=== PATIENT | female | born 1935 | race Caucasian/White ===

== ENCOUNTER 2022-12-08 14:06 | Observation (INO) | payer MEDICARE ==
[~2022-12-08] VITALS: Ht 165.1 cm; Wt 105.2 kg
[2022-12-08] MEDS ORDERED: MONTELUKAST SOD10 MG (15:00)
[2022-12-08] MEDS ORDERED: ATORVASTATIN CA40 MG (15:00)
[2022-12-08] MEDS ORDERED: ARFORMOTER15 MCG/2 M (15:00)
[2022-12-08] MEDS ORDERED: ELIQUIS5 MG (15:00)
[2022-12-08] MEDS ORDERED: ISOSORBIDE MONO30 MG (15:00)
[2022-12-08] MEDS ORDERED: OMEPRAZOLE40 MG (15:00)
[2022-12-08] MEDS ORDERED: FEROSUL325 MG (15:00)
[2022-12-08] MEDS ORDERED: LORATADINE10 MG (15:00)
[2022-12-08] MEDS ORDERED: MECLIZINE HCL25 MG (15:00)
[2022-12-08] MEDS ORDERED: IPRAT-ALBUT 0.5-3 ML (15:00)
[2022-12-08] MEDS ORDERED: FUROSEMIDE40 MG (15:00)
[2022-12-08] MEDS ORDERED: BENZONATATE100 MG (15:00)
[2022-12-08] MEDS ORDERED: FLUTICASONE PRO16 GM (15:00)
[2022-12-08] MEDS ORDERED: POTASSIUM CHLO20 ME1 (15:04)
[2022-12-08] MEDS ORDERED: METOPROLOL TART50 MG (15:04)
[2022-12-08] MEDS ORDERED: MECLIZINE HCL12.5 MG (15:04)
[2022-12-08 15:58] LABS: BASOPHILS % 0.3 % (0.0-1.0); EOSINOPHILS # (AUTO) 0.1 (0.0-0.4); EOSINOPHILS % 1.1 % (0.0-6.0); HEMATOCRIT 41.1 % (34.2-44.1); HEMOGLOBIN 12.3 g/dL (12.0-16.0); LYMPHOCYTES # (AUTO) 1.4 (1.0-3.2); LYMPHOCYTES % 13.9 % (18.0-39.1); MEAN CORPUSCULAR HEMOGLOBIN 31.5 pg (28-32); MEAN CORPUSCULAR HGB CONC 29.9 g/dL (31-35); MEAN CORPUSCULAR VOLUME 105.4 fL (81-99); MONOCYTES # (AUTO) 1.1 (0.2-0.8); MONOCYTES % 11.1 % (4.4-11.3); NEUTROPHILS # (AUTO) 7.2 (2.1-6.9); NEUTROPHILS % 73.3 % (38.7-80.0); PLATELET COUNT 196 x10e3/uL (140-360); RED CELL DISTRIBUTION WIDTH 13.4 % (11.7-14.4)
[2022-12-08] MEDS ORDERED: SODIUM CHLORIDE 0.9% 250ML 250 ML ONE (15:59)
[2022-12-08 16:17] LABS: ANION GAP 16.9 mmol/L (8-16); CALCIUM 9.2 mg/dL (8.4-10.2); CREATININE, SERUM 1.1 mg/dL (0.57-1.11); POTASSIUM 3.9 mmol/L (3.5-5.1)
[2022-12-08 16:27] VITALS: BP 105/74
[2022-12-08 16:58] VITALS: BP 105/74
[2022-12-08 17:01] VITALS: BP 105/74
[2022-12-08 18:19] VITALS: BP 105/74
[2022-12-08 18:31] VITALS: BP 105/74
[2022-12-08] MEDS ORDERED: ALBUTEROL SULFATE HFA 8GM INHALATION AEROSOL INH SCH (19:45)
[2022-12-08] MEDS ORDERED: METOPROLOL TARTRATE 50 MG TAB PO SCH (19:45)
[2022-12-08 20:00] VITALS: BP_SYST 105; BP_SYST 126; BP_DIAS 62; BP_DIAS 74
[2022-12-08] MEDS: METOPROLOL TARTRATE 50 MG TAB PO SCH (20:59)
[2022-12-08] MEDS: FERROUS SULFATE 325 MG TAB PO SCH (21:00)
[2022-12-08] MEDS: HOME MEDICATION--PATIENTS OWN PO SCH (21:00)
[2022-12-09] VITALS (8 sets, daily range): BP systolic 101–132; BP diastolic 47–75
[2022-12-09] MEDS: MECLIZINE HCL 12.5 MG TAB PO SCH ×4 (05:14→16:57)
[2022-12-09] MEDS: MONTELUKAST SODIUM 10 MG TAB PO SCH (09:00)
[2022-12-09] MEDS ORDERED: ALBUTEROL/IPRATROPIUM 3 ML NEB INH SCH (09:00)
[2022-12-09] MEDS: FUROSEMIDE 40 MG TAB PO SCH (09:00)
[2022-12-09] MEDS: METOPROLOL TARTRATE 50 MG TAB PO SCH ×2 (09:00→21:27)
[2022-12-09] MEDS: PANTOPRAZOLE SOD 40 MG TABEC PO SCH (09:00)
[2022-12-09] MEDS: POTASSIUM CHLORIDE 20 MEQ TAB CR PO SCH (09:00)
[2022-12-09] MEDS: ISOSORBIDE MONONITRATE 30 MG TAB CR PO SCH (09:00)
[2022-12-09] MEDS: BENZONATATE 100 MG CAP PO SCH (09:00)
[2022-12-09] MEDS: LORATADINE 10 MG TAB PO SCH (09:00)
[2022-12-09] MEDS: FERROUS SULFATE 325 MG TAB PO SCH ×3 (09:00→21:26)
[2022-12-09] MEDS: FLUTICASONE PROPIONATE NASAL SPRAY NS SCH (11:34)
[2022-12-09] MEDS ORDERED: ONDANSETRON HCL INJ 2MG/ML 2ML 2 MG/ML VIAL ONE (11:53)
[2022-12-09] MEDS ORDERED: PROPOFOL IV EMULSION 10 MG/ML 20 ML VIAL ONE (11:53)
[2022-12-09] MEDS ORDERED: SEVOFLURANE INHAL SOLN 250 ML PEN BTL ONE (11:53)
[2022-12-09] MEDS ORDERED: POVIDONE IODINE 0.05% 0.05 % ML PO ONE (11:53)
[2022-12-09] MEDS ORDERED: DEXAMETHASONE SOD PHOS INJ 4 MG/ML SDV ONE (11:53)
[2022-12-09] MEDS ORDERED: LIDOCAINE HCL 2% LOCAL INJ 5 ML SDV VIAL INJ ONE (11:53)
[2022-12-09] MEDS ORDERED: Morphine 2mg Syringe 2 MG/ML SYR IV PRN (14:00)
[2022-12-09] MEDS ORDERED: TRAMADOL HCL 50 MG TAB PO PRN (14:00)
[2022-12-09] MEDS ORDERED: ACETAMINOPHEN 1000 MG/100 ML 100 ML IV ONE (14:24)
[2022-12-09] MEDS ORDERED: TRAMADOL HCL 50 MG TAB ONE (14:40)
[2022-12-09] MEDS: HOME MEDICATION--PATIENTS OWN PO SCH (21:28)
[2022-12-10] VITALS (8 sets, daily range): BP systolic 99–129; BP diastolic 49–73
[2022-12-10] MEDS: MECLIZINE HCL 12.5 MG TAB PO SCH ×5 (06:00→23:27)
[2022-12-10] MEDS: FUROSEMIDE 40 MG TAB PO SCH (08:34)
[2022-12-10] MEDS: METOPROLOL TARTRATE 50 MG TAB PO SCH ×2 (08:35→20:41)
[2022-12-10] MEDS: ISOSORBIDE MONONITRATE 30 MG TAB CR PO SCH (08:35)
[2022-12-10] MEDS: POTASSIUM CHLORIDE 20 MEQ TAB CR PO SCH (08:35)
[2022-12-10] MEDS: BENZONATATE 100 MG CAP PO SCH (08:35)
[2022-12-10] MEDS: LORATADINE 10 MG TAB PO SCH (08:36)
[2022-12-10] MEDS: PANTOPRAZOLE SOD 40 MG TABEC PO SCH (08:36)
[2022-12-10] MEDS: MONTELUKAST SODIUM 10 MG TAB PO SCH (08:36)
[2022-12-10] MEDS: FERROUS SULFATE 325 MG TAB PO SCH ×3 (08:36→20:41)
[2022-12-10] MEDS: FLUTICASONE PROPIONATE NASAL SPRAY NS SCH (08:36)
[2022-12-10] MEDS: HOME MEDICATION--PATIENTS OWN PO SCH (20:47)
[2022-12-11] VITALS: BP 104/52
[2022-12-11 04:00] VITALS: BP 119/57
[2022-12-11 04:56] LABS: BASOPHILS % 0.5 % (0.0-1.0); EOSINOPHILS # (AUTO) 0.1 (0.0-0.4); HEMATOCRIT 38.7 % (34.2-44.1); HEMOGLOBIN 11.4 g/dL (12.0-16.0); LYMPHOCYTES # (AUTO) 1.5 (1.0-3.2); LYMPHOCYTES % 23.8 % (18.0-39.1); MEAN CORPUSCULAR HEMOGLOBIN 31.1 pg (28-32); MEAN CORPUSCULAR HGB CONC 29.5 g/dL (31-35); MEAN CORPUSCULAR VOLUME 105.4 fL (81-99); MONOCYTES # (AUTO) 0.7 (0.2-0.8); NEUTROPHILS % 62.2 % (38.7-80.0); PLATELET COUNT 268 x10e3/uL (140-360); RED BLOOD COUNT 3.67 x10e6/uL (3.6-5.1); RED CELL DISTRIBUTION WIDTH 13.2 % (11.7-14.4)
[2022-12-11 05:13] LABS: ANION GAP 14.6 mmol/L (8-16); CALCIUM 8.5 mg/dL (8.4-10.2); CREATININE, SERUM 1.15 mg/dL (0.57-1.11); POTASSIUM 3.6 mmol/L (3.5-5.1)
[2022-12-11] MEDS: MECLIZINE HCL 12.5 MG TAB PO SCH (05:36)
[2022-12-11 07:35] VITALS: BP 128/60
[2022-12-11 08:00] VITALS: BP 128/60
[2022-12-11] MEDS: PANTOPRAZOLE SOD 40 MG TABEC PO SCH (08:29)
[2022-12-11] MEDS: FUROSEMIDE 40 MG TAB PO SCH (08:29)
[2022-12-11] MEDS: LORATADINE 10 MG TAB PO SCH (08:29)
[2022-12-11] MEDS: POTASSIUM CHLORIDE 20 MEQ TAB CR PO SCH (08:30)
[2022-12-11] MEDS: FERROUS SULFATE 325 MG TAB PO SCH (08:30)
[2022-12-11] MEDS: MONTELUKAST SODIUM 10 MG TAB PO SCH (08:30)
[2022-12-11] MEDS: ISOSORBIDE MONONITRATE 30 MG TAB CR PO SCH (08:31)
[2022-12-11] MEDS: BENZONATATE 100 MG CAP PO SCH (08:31)
[2022-12-11] MEDS: METOPROLOL TARTRATE 50 MG TAB PO SCH (09:00)
[2022-12-11] MEDS: FLUTICASONE PROPIONATE NASAL SPRAY NS SCH (09:00)
[2022-12-11 10:53] VITALS: BP 108/46
[2022-12-11] MEDS ORDERED: [UNRECOGNIZED DRUG - OTHER] (11:49)
[2022-12-11] MEDS ORDERED: CEFTIN PO (11:50)
[2022-12-11 15:39] VITALS: BP 121/78
== END 2022-12-11 17:01 | disposition home health service (06) ==
LOC: MED/SURG2 14:06
PROVIDERS: ADMIT Internal Medicine; ATTEND Internal Medicine
DX: L02.31 Cutaneous abscess of buttock (principal); I48.91 Unspecified atrial fibrillation; B95.2 Enterococcus as the cause of diseases classified elsewhere; I10 Essential (primary) hypertension; J45.909 Unspecified asthma, uncomplicated; E78.5 Hyperlipidemia, unspecified; E66.01 Morbid (severe) obesity due to excess calories; K21.9 Gastro-esophageal reflux disease without esophagitis; Z88.6 Allergy status to analgesic agent; Z88.1 Allergy status to other antibiotic agents; Z88.8 Allergy status to other drugs, medicaments and biological substances; Z20.822 Contact with and (suspected) exposure to COVID-19; Z79.02 Long term (current) use of antithrombotics/antiplatelets; Z79.84 Long term (current) use of oral hypoglycemic drugs; Z79.899 Other long term (current) drug therapy; Z68.38 Body mass index [BMI] 38.0-38.9, adult; Z95.0 Presence of cardiac pacemaker; Z86.73 Personal history of transient ischemic attack (TIA), and cerebral infarction without residual deficits; Z86.16 Personal history of COVID-19
CPT/HCPCS: 36415; 80048; 85025; 87071; 87075; 87186; 87205; 88304; 99252; G0378; J1100; J2001; J2405; J2543; J7050

== ENCOUNTER 2023-03-23 16:49 | Observation (INO) | payer MEDICARE ==
[~2023-03-23] VITALS: Ht 165.1 cm; Wt 105.2 kg
[~2023-03-23 16:49] MED LIST: ARFORMOTER15 MCG/2 M; ATORVASTATIN CA40 MG; BENZONATATE100 MG; CEFTIN PO; ELIQUIS5 MG; FEROSUL325 MG; FLUTICASONE PRO16 GM; FUROSEMIDE40 MG; IPRAT-ALBUT 0.5-3 ML; ISOSORBIDE MONO30 MG; LORATADINE10 MG; MECLIZINE HCL12.5 MG; MECLIZINE HCL25 MG; METOPROLOL TART50 MG; MONTELUKAST SOD10 MG; OMEPRAZOLE40 MG; POTASSIUM CHLO20 ME1; [UNRECOGNIZED DRUG - OTHER]
[2023-03-23] MEDS ORDERED: ONDANSETRON HCL INJ 2MG/ML 2ML 2 MG/ML VIAL IV STA (17:19)
[2023-03-23] MEDS ORDERED: SODIUM CHLORIDE 0.9% 1000ML 1,000 ML IV STA (17:19)
[2023-03-23 17:37] LABS: BASOPHILS % 0.4 % (0.0-1.0); EOSINOPHILS # (AUTO) 0.1 (0.0-0.4); EOSINOPHILS % 2.6 % (0.0-6.0); HEMATOCRIT 34.3 % (34.2-44.1); HEMOGLOBIN 10.4 g/dL (12.0-16.0); MEAN CORPUSCULAR HEMOGLOBIN 29.5 pg (28-32); MEAN CORPUSCULAR HGB CONC 30.3 g/dL (31-35); MEAN CORPUSCULAR VOLUME 97.4 fL (81-99); MONOCYTES # (AUTO) 0.6 (0.2-0.8); NEUTROPHILS # (AUTO) 3.3 (2.1-6.9); NEUTROPHILS % 65.4 % (38.7-80.0); PLATELET COUNT 185 x10e3/uL (140-360); RED BLOOD COUNT 3.52 x10e6/uL (3.6-5.1); RED CELL DISTRIBUTION WIDTH 13.2 % (11.7-14.4)
[2023-03-23 17:58] LABS: ALANINE AMINOTRANSFERASE 7 IU/L (0-55); ALBUMIN 2.4 g/dL (3.5-5.0); ALBUMIN/GLOBULIN RATIO 0.8 (0.8-2.0); ALKALINE PHOSPHATASE 76 IU/L (40-150); ANION GAP 12.2 mmol/L (8-16); BLOOD UREA NITROGEN 15 mg/dL (7-26); BUN/CREATININE RATIO 18 (6-25); CALCIUM 7.3 mg/dL (8.4-10.2); CARBON DIOXIDE 25 mmol/L (22-29); CHLORIDE 111 mmol/L (98-107); CREATINE KINASE 20 IU/L (29-168); CREATININE, SERUM 0.83 mg/dL (0.57-1.11); GLUCOSE 92 mg/dL (74-118); LIPASE 31 U/L (8-78); POTASSIUM 3.2 mmol/L (3.5-5.1); SODIUM 145 mmol/L (136-145)
[2023-03-23 18:19] LABS: CLARITY,URINE CLEAR (CLEAR); COLOR,URINE YELLOW (YELLOW); KETONES,URINE NEGATIVE (NEGATIVE); LEUKOCYTE ESTERASE ,URINE NEGATIVE (NEGATIVE); NITRITE,URINE NEGATIVE (NEGATIVE); PROTEIN,URINE DIPSTICK NEGATIVE (NEGATIVE); URINE UROBILINOGEN 0.2 mg/dL (0.2 - 1)
[2023-03-23 18:29] LABS: BACTERIA,URINE MODERATE /HPF; EPITHELIAL CELLS,URINE FEW /LPF; RBC,URINE 0-5 /HPF (0-5); WBC,URINE (MAN) 0-5 /HPF (0-5)
[2023-03-23] MEDS ORDERED: ONDANSETRON HCL INJ 2MG/ML 2ML 2 MG/ML VIAL IV PRN (19:30)
[2023-03-23] MEDS ORDERED: Morphine 2mg Syringe 2 MG/ML SYR IV PRN (19:30)
[2023-03-23] MEDS: SODIUM CHLORIDE 0.9% 1000ML 1,000 ML IV SCH (21:51)
[2023-03-23 22:00] VITALS: BP 135/80
[2023-03-23] MEDS ORDERED: LOPRESSOR25 MG PO (23:17)
[2023-03-23 23:18] VITALS: BP 135/80
[2023-03-23 23:24] VITALS: BP 135/80
[2023-03-24] VITALS (7 sets, daily range): BP systolic 123–133; BP diastolic 48–77
[2023-03-24 02:22] LABS: CREATINE KINASE 20 IU/L (29-168)
[2023-03-24] MEDS: SODIUM CHLORIDE 0.9% 1000ML 1,000 ML IV SCH (03:55)
[2023-03-24 05:00] LABS: BASOPHILS % 0.9 % (0.0-1.0); EOSINOPHILS # (AUTO) 0.2 (0.0-0.4); HEMOGLOBIN 12.1 g/dL (12.0-16.0); LYMPHOCYTES % 23.2 % (18.0-39.1); MEAN CORPUSCULAR HGB CONC 30.3 g/dL (31-35); MEAN CORPUSCULAR VOLUME 99.3 fL (81-99); MONOCYTES # (AUTO) 0.6 (0.2-0.8); MONOCYTES % 13.6 % (4.4-11.3); NEUTROPHILS # (AUTO) 2.6 (2.1-6.9); NEUTROPHILS % 58.1 % (38.7-80.0); PLATELET COUNT 177 x10e3/uL (140-360); RED BLOOD COUNT 4.03 x10e6/uL (3.6-5.1); RED CELL DISTRIBUTION WIDTH 13.1 % (11.7-14.4)
[2023-03-24 05:16] LABS: ANION GAP 13.9 mmol/L (8-16); CALCIUM 8.8 mg/dL (8.4-10.2); CREATININE, SERUM 0.97 mg/dL (0.57-1.11); POTASSIUM 3.9 mmol/L (3.5-5.1)
[2023-03-24] MEDS ORDERED: TRIMETHOPRIM/SULFAMETHOXAZOLE 160-800 MG TAB PO ONE (10:00)
== END 2023-03-24 17:01 | disposition home or self-care (01) ==
LOC: ER 16:54 → ERHOLD 19:32 → MED/SURG 21:09
PROVIDERS: ADMIT Internal Medicine; ATTEND Internal Medicine
DX: K52.89 Other specified noninfective gastroenteritis and colitis (principal); I10 Essential (primary) hypertension; E66.9 Obesity, unspecified; Z68.38 Body mass index [BMI] 38.0-38.9, adult; E78.5 Hyperlipidemia, unspecified; Z95.0 Presence of cardiac pacemaker; I25.10 Atherosclerotic heart disease of native coronary artery without angina pectoris; Z11.52 Encounter for screening for COVID-19; Z85.038 Personal history of other malignant neoplasm of large intestine; Z85.528 Personal history of other malignant neoplasm of kidney; Z59.6 Low income
CPT/HCPCS: 0223U; 36415 ×2; 70450; 71045 ×2; 80048; 80053; 81001; 82550 ×2; 82553 ×2; 83690; 83880; 84484 ×2; 85025 ×2; 93005 ×2; 94799 ×2; 96361; 99284; G0378 ×2; J2405; J7030 ×2

== ENCOUNTER 2023-04-08 16:48 | Emergency (ER) | payer MEDICARE ==
[~2023-04-08] VITALS: Ht 167.6 cm; Wt 105.2 kg
[~2023-04-08 16:48] MED LIST changes: +LOPRESSOR25 MG PO
[2023-04-08 17:51] LABS: BASOPHILS % 0.7 % (0.0-1.0); EOSINOPHILS # (AUTO) 0.2 (0.0-0.4); EOSINOPHILS % 3.3 % (0.0-6.0); HEMOGLOBIN 13.3 g/dL (12.0-16.0); LYMPHOCYTES # (AUTO) 1.4 (1.0-3.2); LYMPHOCYTES % 25.6 % (18.0-39.1); MEAN CORPUSCULAR HEMOGLOBIN 29.4 pg (28-32); MEAN CORPUSCULAR HGB CONC 30.9 g/dL (31-35); MEAN CORPUSCULAR VOLUME 95.1 fL (81-99); MONOCYTES # (AUTO) 0.6 (0.2-0.8); NEUTROPHILS # (AUTO) 3.2 (2.1-6.9); PLATELET COUNT 236 x10e3/uL (140-360); RED BLOOD COUNT 4.52 x10e6/uL (3.6-5.1); RED CELL DISTRIBUTION WIDTH 13.2 % (11.7-14.4)
[2023-04-08 18:15] LABS: ALBUMIN 3.2 g/dL (3.5-5.0); ALBUMIN/GLOBULIN RATIO 0.8 (0.8-2.0); ANION GAP 14.4 mmol/L (8-16); CALCIUM 9.3 mg/dL (8.4-10.2); CREATININE, SERUM 1.31 mg/dL (0.57-1.11); POTASSIUM 4.4 mmol/L (3.5-5.1)
[2023-04-08 19:06] LABS: CLARITY,URINE CLEAR (CLEAR); COLOR,URINE YELLOW (YELLOW); KETONES,URINE NEGATIVE (NEGATIVE); LEUKOCYTE ESTERASE ,URINE TRACE (NEGATIVE); NITRITE,URINE NEGATIVE (NEGATIVE); PROTEIN,URINE DIPSTICK NEGATIVE (NEGATIVE); URINE UROBILINOGEN 0.2 mg/dL (0.2 - 1)
[2023-04-08 19:16] LABS: BACTERIA,URINE FEW /HPF; EPITHELIAL CELLS,URINE MODERATE /LPF; RBC,URINE 0-5 /HPF (0-5)
[2023-04-08] MEDS ORDERED: CEFDINIR300 MG PO (19:48)
[2023-04-08] MEDS ORDERED: ONDANSETRON ODT4 MG PO (19:48)
[2023-04-08 20:02] VITALS: BP 112/66; PULSE 67; RESP 20; O2SAT 95
== END 2023-04-08 20:20 | disposition home or self-care (01) ==
LOC: ER 16:59
DX: R19.7 Diarrhea, unspecified (principal); R11.0 Nausea; N30.90 Cystitis, unspecified without hematuria; R09.89 Other specified symptoms and signs involving the circulatory and respiratory systems; R94.31 Abnormal electrocardiogram [ECG] [EKG]
CPT/HCPCS: 36415; 80053; 81001; 85025; 93005; 99283

== ENCOUNTER 2023-04-30 15:04 | Emergency (ER) | payer MEDICARE ==
[~2023-04-30] VITALS: Ht 167.6 cm; Wt 105.2 kg
[~2023-04-30 15:04] MED LIST changes: +CEFDINIR300 MG PO; +ONDANSETRON ODT4 MG PO
[2023-04-30 15:43] LABS: BASOPHILS % 0.3 % (0.0-1.0); EOSINOPHILS % 0.1 % (0.0-6.0); HEMATOCRIT 44.3 % (34.2-44.1); HEMOGLOBIN 13.9 g/dL (12.0-16.0); LYMPHOCYTES # (AUTO) 0.8 (1.0-3.2); LYMPHOCYTES % 11.8 % (18.0-39.1); MEAN CORPUSCULAR HEMOGLOBIN 29.3 pg (28-32); MEAN CORPUSCULAR HGB CONC 31.4 g/dL (31-35); MEAN CORPUSCULAR VOLUME 93.3 fL (81-99); MONOCYTES # (AUTO) 0.1 (0.2-0.8); MONOCYTES % 1.8 % (4.4-11.3); NEUTROPHILS # (AUTO) 5.8 (2.1-6.9); NEUTROPHILS % 85.4 % (38.7-80.0); PLATELET COUNT 253 x10e3/uL (140-360); RED BLOOD COUNT 4.75 x10e6/uL (3.6-5.1); RED CELL DISTRIBUTION WIDTH 13.6 % (11.7-14.4)
[2023-04-30 16:00] LABS: ALBUMIN 3.5 g/dL (3.5-5.0); ALBUMIN/GLOBULIN RATIO 0.9 (0.8-2.0); ANION GAP 16.2 mmol/L (8-16); CALCIUM 9.5 mg/dL (8.4-10.2); CREATININE, SERUM 1.23 mg/dL (0.57-1.11); POTASSIUM 4.2 mmol/L (3.5-5.1)
[2023-04-30 16:11] LABS: INR 1.1; PARTIAL THROMBOPLASTIN TIME 30.9 seconds (23.8-35.5); PROTHROMBIN TIME 14.7 seconds (11.9-14.5)
[2023-04-30 17:06] VITALS: PULSE 61; RESP 17; O2SAT 96
[2023-04-30 17:21] VITALS: PULSE 61; RESP 17; O2SAT 100
[2023-04-30] MEDS ORDERED: ALBUTEROL/IPRATROPIUM 3 ML NEB NEB ONE (17:30)
[2023-04-30] MEDS ORDERED: DEXAMETHASONE SOD PHOS 10 MG/1 ML VIAL IV ONE (17:30)
[2023-04-30] MEDS ORDERED: AZITHROMYCIN250 MG PO (18:43)
[2023-04-30] MEDS ORDERED: PREDNISONE20 MG PO (18:43)
== END 2023-04-30 19:38 | disposition home or self-care (01) ==
LOC: ER 15:10
DX: R06.02 Shortness of breath (principal); J44.1 Chronic obstructive pulmonary disease with (acute) exacerbation; I10 Essential (primary) hypertension; I25.10 Atherosclerotic heart disease of native coronary artery without angina pectoris; E78.5 Hyperlipidemia, unspecified; F41.9 Anxiety disorder, unspecified; Z87.19 Personal history of other diseases of the digestive system; Z95.810 Presence of automatic (implantable) cardiac defibrillator; Z85.038 Personal history of other malignant neoplasm of large intestine
CPT/HCPCS: 36415; 71045; 80053; 82550; 82553; 83605; 83880; 84484; 85025; 85379; 85610; 85730; 87040; 93005; 94640; 94760; 94799; 99285